=== PATIENT | male | born 1950 | race Caucasian/White ===

== ENCOUNTER 2025-05-28 15:34 | Emergency (ER) | payer OTHER, SELFPAY ==
[2025-05-28] VITALS (8 sets, daily range): BP systolic 181–186; BP diastolic 89–101; PULSE 60–67; RESP 17–20; TEMP 37.1; O2SAT 94–99
--- OUTSIDE RECORDS SUMMARY | 2025-05-28 15:36 | XMS_ITS | Clinical Summary ---
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 Name Role Phone [place], [place] Primary Care Provider [phone] Allergies No known active allergies Medications MedicationSigDispense QuantityRefillsLast FilledStart DateEnd DateStatus ATENOLOL 25 MG TAB take 1 tablet (25 mg) by oral route once daily 30 ctive LISINOPRIL 20 MG TAB take 1 tablet (20 mg) by oral route once daily 90 ctive VIAGRA 50 MG TAB take 1 tablet (50 mg) by oral route once daily as needed approximately 1 hour before sexual activity 6 ctive ATENOLOL 50 MG TAB Indications:HTNtake 1 tablet (50 mg) by oral route once daily 30 ctive Active Problems ProblemNoted DateDiagnosed DateHTN (hypertension)01/19/2009 Overview (08/28/2009): Updated by system to replace inactive record Unspecified essential trfyzyyfhxgv82/05/2009 Family History Medical HistoryRelationNameCommentsStrokeFatherDiabetesMotherRelationNameStatus CommentsFatherDeceasedMotherDeceased Social History Tobacco UseTypesPacks/DayYears UsedDateSmoking Tobacco: Every DayCigarettes Smokeless Tobacco: NeverAlcohol UseStandard Drinks/WeekCommentsYes1.7 (1 standard drink = 0.6 oz pure alcohol)Sex and Gender InformationValueDate RecordedSex Assigned at BirthNot on fileLegal IsaKoue8206/28/2012 5:23 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 Gender IdentityNot on fileSexual OrientationNot on file Last Filed Vital Signs Vital SignReadingTime TakenCommentsBlood Ecngudda935/8806/28/2020 1:00 PM REAL 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 LOAN OFFICER Weknc963206/28/2020 1:00 PM CUZDgyhckbzzzg96.1 ??C (98.8 ??F)06/28/2020 11:03 AM CSTRespiratory Ahle265506/28/2020 11:03 AM CSTOxygen Kzbtcjdpjg08%06/28/2020 1:00 PM CSTInhaled Oxygen Concentration--Cfjdwl61.5 kg (204 lb)06/28/2020 11:03 AM OEPTjyzyj411.3 cm (5' 9)06/28/2020 11:03 AM CSTBody Mass Index30.13006/28/2020 11:03 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 Plan of Treatment Health MaintenanceDue DateLast DoneCommentsTetanus iocwdfb5205/24/1960Depression screening for age 12+1BMI (ht and wt on same day) for age 18+1967 Hepatitis C screening for age 18-7905/24/1967Colonoscopy through age 75 1994Pneumococcal series for age 50+ (1 of 1 - PCV)1999Zoster (shingles) series for age 50+ (1 of 2)1999Lipids for age 45-75010/19/2013 10/19/2008, 07/12/2007RSV vaccine for adults or (1 - 1-dose 75+ series)2024OVID-19 vaccine series ( - 2024- season)2025Influenza Vaccine (#1)2025Hepatitis B series for 19+Aged OutNo longer eligible based on patient's age to complete this topic Procedures Procedure NamePriorityDate/TimeAssociated DiagnosisCommentsLIPID PANELRoutine 10/19/2008 8:28 AM CDT Unspecified Essential Hypertension from Last 3 Months or Most Recently Relevant to Health Maintenance Results * (ABNORMAL) LIPID PANEL (10/19/2008 8:28 AM CDT)ComponentValueRef RangeTest MethodAnalysis TimePerformed AtPathologist SignatureCHOLESTEROL,[id number] - 199 mg/dLFARIBAULT AMC CPPSSHBIEUMIEOPA228(H)<150 mg/dLFARADVENTHEALTH [facility] LABHDL NLBDQASGSLB11(L)>40 mg/dLFARADVENTHEALTH [facility] LABCHOL/HDL RATIO4.90(H)<4.51FARIBAVICTOR VALLEY HOSPITAL LABLDL GMANNWJKDSW256<131 mg/dLFARADVENTHEALTH HENDERSONVILLE LABPATIENT STATUSFasting [facility] LABSpecimen (Source)Anatomical Location / LateralityCollection Method / VolumeCollection TimeReceived TimeBlood specimen (specimen)BLOOD SPECIMEN / Scchopv4110/19/2008 8:28 AM CDT10/19/2008 8:11 AM CDT Narrative Authorizing ProviderResult TypeResult StatusRay Jonathan [place] MDCHEMISTRYFinal Result Performing OrganizationAddressCity/State/ZIP CodePhone Number [place] [facility] [address] [place] [address] from Last 3 Months or Most Recently Relevant to Health Maintenance Insurance * Guarantor: Hector Clark TypeRelation to PatientDate of BirthPhone Billing AddressPersonal/TldsdiMgtm1950 [id number] [place] [address] Care Teams Team MemberRelationshipSpecialtyStart [place] [address] [place] [phone] PCP - General06/28/20
--- NOTE | 2025-05-28 16:16 | ED.GENADULT ---
HPI - General Adult General Time Seen by Provider: 16:16 Date Seen: 05/28/25 Chief complaint: Chest Pain Stated complaint: Chest Tightness Time Seen by Provider: 05/28/25 16:16 Source: patient and RN notes reviewed Mode of arrival: ambulatory Limitations: no limitations History of Present Illness HPI narrative: Hector is a very pleasant 75-year-old gentleman with history of hypertension currently I am and loaded pain and losartan who comes to the emergency room with episodes of chest tightness associated with some mild dizziness since last night. These episodes are lasting 1 minute to 3 minutes. He denies visual changes shortness of breath or nausea when they occur but cannot say he does not get lightheaded. However, he denies any vertigo. He does not have a headache he describes the chest symptoms as tightness and not pain. He denies any lower extremity edema Except for some chronic swelling in his left ankle after a fracture dislocation a few years ago. He denies a history of DVT. he has not had any fever chills but does note waking up with a mild soreness in his left side of his throat a few nights ago. Denies runny nose, has had mild phlegm production. No significant cough. Denies a fever. The chest tightness is in the front of his chest, does not radiate to the back jaw or arms. Related Data Home Medications ?Medication ?Instructions ?Recorded ?Confirmed amlodipine 10 mg tablet 10 mg PO DAILY 05/28/25 05/28/25 losartan 100 mg tablet (Cozaar) 100 mg PO DAILY 05/28/25 05/28/25 Allergies Allergy/AdvReac Type Severity Reaction Status Date / Time Unable to Assess Allergy Unverified 05/28/25 15:47 Review of Systems Status of ROS: Reports: 10 or more systems reviewed and unremarkable except as noted in History and below Const: Denies: fever or chills Eyes: Denies: change in vision or blurry vision ENMT: Reports: throat pain ( Mild on the left); Denies: neck pain, vertigo or nasal congestion Cardio: Reports: chest pain ( described as tightness) and lightheadedness; Denies: palpitations, edema or shortness of breath with exertion Resp: Denies: shortness of breath or cough GI: Denies: abdominal pain, nausea, vomiting or diarrhea : Denies: painful urination or urinary frequency Musculo: Denies: back pain, neck pain or extremity pain Integ/Breast: Denies: rash or redness Neuro: Denies: headache, numbness in extremities, weakness in extremities, lack of coordination, vertigo or confusion Exam Narrative: Exam Narrative: alert and oriented. Very pleasant gentleman in no acute distress. External ears eyes nose clear. Oral cavity with moist mucous membranes. Neck is supple without lymphadenopathy. No erythema or exudate noted in the posterior oropharynx. Heart with regular rate and rhythm. Lungs are clear bilaterally. Abdomen is soft nontender. Lower extremities without edema or calf tenderness. Moving all extremities without difficulty. Const: Vital Signs, click to edit/add: Vital Signs - 24 hr 05/28/25 15:37 05/28/25 16:33 05/28/25 16:35 Temperature 98.7 F Pulse Rate 61 Pulse Rate [Right Pulse Oximeter] 65 Respiratory Rate 18 17 Blood Pressure Blood Pressure [Le ft Upper Arm] 186/89 H Pulse Oximetry 99 95 95 Oxygen Delivery Me thod Room Air 05/28/25 16:45 05/28/25 16:49 05/28/25 17:00 Temperature Pulse Rate 60 67 61 Pulse Rate [Right Pulse Oximeter] Respiratory Rate 17 18 20 Blood Pressure 183/101 H Blood Pressure [Le ft Upper Arm] Pulse Oximetry 95 96 95 Oxygen Delivery Me thod 05/28/25 17:02 05/28/25 17:15 Temperature Pulse Rate 62 62 Pulse Rate [Right Pulse Oximeter] Respiratory Rate 17 17 Blood Pressure 181/96 H Blood Pressure [Le ft Upper Arm] Pulse Oximetry 95 94 Oxygen Delivery Me thod Room Air Course Course ED Course: Differential diagnosis includes but is not limited to acute coronary syndrome, angina, anxiety, pneumonia, early viral infection, musculoskeletal discomfort. Point of care high sensitivity troponin has already been done and that is normal at 3.4. Will recheck that in [address] patient on court monitor, obtain EKG as well as labs to include CBC, comprehensive panel, magnesium. Will also obtain chest x-ray and put patient on court monitor. Reevaluation(s) Reevaluation #1: Patient noted to be without any discomfort in the ED. initial troponin is negative with reassuring EKG. White count normal, hemoglobin 16.7. Electrolytes without abnormality. Magnesium 1.9 LFTs within normal limits. Chest x-ray by my read without abnormality. Given the intermittent and fleeting nature of patient's discomfort will have him continue on the court monitor and repeat troponin. Reevaluation #2: I did attempt call to the [facility] but they would not take my phone call. It has been my experience in the past with [facility] in a gentleman with these symptoms age and cardiac risk factors that they do appreciate 2 troponins and usually suggest placement on ZIO patch and follow-up with stress test. Patient is given aspirin 324 mg p.o.. Currently awaiting D-dimer and if that is negative patient will be discharged home. Vital Signs Vital signs: Initial Vital Signs Temperature 98.7 F 05/28/25 15:37 Temperature Source Temporal Artery Scan 05/28/25 15:37 Pulse Rate 65 05/28/25 15:37 Pulse Rhythm Regular 05/28/25 15:37 Pulse Strength 3+ Normal 05/28/25 15:37 Respiratory Rate 18 05/28/25 15:37 Blood Pressure 186/89 H 05/28/25 15:37 Blood Pressure Mean 121 H 05/28/25 15:37 Blood Pressure Position Sitting 05/28/25 15:37 Pulse Oximetry 99 05/28/25 15:37 Oxygen Delivery Method Room Air 05/28/25 15:37 Vital Signs Temperature 98.7 F 05/28/25 15:37 Pulse Rate 65 05/28/25 15:37 Respiratory Rate 18 05/28/25 15:37 Blood Pressure 186/89 H 05/28/25 15:37 Pulse Oximetry 99 05/28/25 15:37 Oxygen Delivery Method Room Air 05/28/25 15:37 Temperature 98.7 F 05/28/25 15:37 Pulse Rate 62 05/28/25 17:15 Respiratory Rate 17 05/28/25 17:15 Blood Pressure 181/96 H 05/28/25 17:02 Pulse Oximetry 94 05/28/25 17:15 Oxygen Delivery Method Room Air 05/28/25 17:02 Medications Administered Medications: Generic Name Dose Route Start Last Admin Trade Name Freq PRN Reason Stop Dose Admin Aspirin 324 mg 05/28/25 19:09 05/28/25 19:27 Aspirin 81 Mg Tab.Chew PO 05/28/25 19:10 324 mg ONCE ONE Administration Medical Decision Making MDM Narrative Medical decision making narrative: 1. Atypical chest pain-patient noted to have 2-cardiac enzymes, a reassuring EKG with no evidence of ST or T-wave changes. In addition his D-dimer was negative, chest x-ray clear. Patient reported 1 fleeting moment of chest tightness without pain that lasted mere of seconds. He is given aspirin 324 mg p.o.. We have placed him on a ZIO patch and will set him up for a walking Lexiscan for ThursdayMay 30. If he is declined because of his [facility] status he will need to follow-up with his primary MD for a recheck. He has a remote history of a negative angiogram at the [facility]. Thinks this was greater than 10 years ago. Would have him continue his aspirin 1 dose tomorrow night. He is to seek medical attention for worsening symptoms. 2. Hypertension-patient notes longstanding hypertension. Stated that a few months ago he had been told to record his values and that the [facility] would reach out to him then they never did. Thus, he has continued to have elevated pressures. At 1 point his blood pressure did decrease to 165/94. I did suggest possibly adding hydrochlorothiazide. He states that he is allergic to 1 of the blood pressure medicines. I hesitate to something at this point as he has had ongoing high blood pressure for quite some time. Would suggest that he again follow-up with his primary MD for the addition of a 3rd medication. He is currently maxed out on his amlodipine and his clothes are. He has no evidence of hypertensive urgency or emergency this evening. 3. Disposition-home at this time. Expect phone call for Thursday stress test. Seek medical attention for worsening symptoms and as needed. Medical Records Medical records reviewed: Yes I reviewed the patient's medical records Lab Data Lab results reviewed: Yes I reviewed the patient's lab results Labs: Lab Results 05/28/25 05/28/25 05/28/25 Range/Units 15:48 16:33 16:45 WBC 5.87 (4.50-11.00) K/uL RBC 5.51 (4.30-5.90) m/uL Hgb 16.7 (13.5-17.5) gm/dL Hct 47.6 (37.0-53.0) % MCV 86 (80-100) fL MCH 30 (26-34) pg MCHC 35 (32-36) gm/dL RDW Coeff of Kizzy 12.2 (11.5-15.5) % Plt Count 190 (140-440) K/uL Neut % (Auto) 46.9 (42.0-72.0) % Lymph % (Auto) 40.0 (20-44) % Willacy % (Auto) 9.4 (0.0-11.0) % Eos % (Auto) 2.9 (0.0-7.0) % Baso % (Auto) 0.3 (0.0-3.0) % Neut # (Auto) 2.75 (1.7-7.0) K/uL Lymph # (Auto) 2.35 (0.90-2.90) K/uL Willacy # (Auto) 0.60 (0.00-0.90) K/UL Eos # (Auto) 0.17 (0.00-0.50) K/uL Baso # (Auto) 0.02 (0.00-0.30) K/uL Abs Immat Gran (auto) 0.03 (0.00-0.30) K/uL Imm/Tot Granulo (auto) 0.5 % D-Dimer Quant (PE/DVT) < 0.27 (0.00-0.50) ug/ml Sodium 137 (135-149) mmol/L Potassium 3.8 (3.6-5.1) mmol/L Chloride 103 (96-114) mmol/L Carbon Dioxide 25 (20-32) mmol/L Anion Gap 9 (7-15) mEq/L BUN 8 (7-30) mg/dL Creatinine 0.8 (0.5-1.5) mg/dL Estimated GFR 92 ml/min Glucose 130 H (60-115) mg/dL Calcium 9.3 (8.4-10.6) mg/dL Magnesium 1.9 (1.5-2.6) mg/dL Total Bilirubin 0.6 (0.1-1.5) mg/dL AST 28 (12-35) U/L ALT 42 (4-50) U/L Alkaline Phosphatase 66 (40-150) U/L POC Troponin I High Sensi 3.4 3.5 (2.9-28.0) pg/mL Total Protein 7.8 (6.0-8.3) g/dL Albumin 4.9 (3.3-5.0) g/dL Imaging Data Chest x-ray: Attestation: I have reviewed the pertinent imaging results. My impression: by my read no acute infiltrates or widened mediastinum. Radiologist's impression: The lungs are clear. The heart, mediastinum and pulmonary vessels are of normal size. There is no evidence of pleural disease. IMPRESSION: Negative chest. ECG Data Attestation: I personally reviewed and interpreted this ECG as follows: Interpretation: EKG by my read shows sinus rhythm at a rate of 66. I do not note any acute ST or T-wave changes. I do not note a prolonged UT QT interval. color television console monitor does not show any evidence of arrhythmia during patient's stay here. Discharge Plan Discharge Clinical Impression: Atypical chest pain Hypertension Qualifiers: Hypertension type: unspecified Qualified Code(s): I10 - Essential (primary) hypertension Patient Disposition: Home, Self-Care Condition: Improved Additional Instructions: 1. We will place ZIO monitor to monitor few for any unusual rhythms that it may be occurring while you feel the chest tightness. 2. Have ordered the stress test for Thursday. They will call you with a time once we have pre authorization from your insurance. If your insurance declines this test you will need to go through [facility]. 3. I would like you to have a dose of aspirin tonight. Will have you do a dose of baby aspirin tomorrow night as well. 4. Seek medical attention for worsening pain, shortness of breath, worsening symptoms. Prescriptions: No Action losartan [Cozaar] 100 mg tablet 100 mg PO DAILY amlodipine 10 mg tablet 10 mg PO DAILY Follow Up/Referrals: Provider,Not a Local [Primary Care Provider, Family Practice] Stand Alone Forms: Mobile Shareholder Info Instructions
--- NOTE | 2025-05-28 16:33 | CRLHL7_ITS ---
For Patients: As a result of the Century Cures Act, medical imaging exams and procedure reports are released immediately into your electronic medical record. You may view this report before your referring provider. If you have questions, please contact your health care provider. INDICATION: Chest tightness TECHNIQUE: Single view chest. FINDINGS: The lungs are clear. The heart, mediastinum and pulmonary vessels are of normal size. There is no evidence of pleural disease. IMPRESSION: Negative chest. Dictated by Greta Curry MD @ 05/28/2025 5:18:26 PM (Electronically Signed)
[2025-05-28 17:29] LABS: Hematocrit* 47.6 % (37.0-53.0); Hemoglobin* 16.7 gm/dL (13.5-17.5); Immature Granulocytes Abs Auto 0.03 K/uL (0.00-0.30); Immature Granulocytes Pct Auto 0.5 %; Lymphocytes Absolute Auto 2.35 K/uL (0.90-2.90); Mean Corpuscular HGB Conc 35 gm/dL (32-36); Mean Corpuscular Hemoglobin 30 pg (26-34); Mean Corpuscular Volume 86 fL (80-100); RDW Coefficient of Variation % 12.2 % (11.5-15.5); Red Blood Count* 5.51 m/uL (4.30-5.90); White Blood Count* 5.87 K/uL (4.50-11.00)
[2025-05-28 17:30] LABS: Slide Review Reflex No
[2025-05-28 17:33] LABS: Albumin* 4.9 g/dL (3.3-5.0); Chloride* 103 mmol/L (96-114); Sodium* 137 mmol/L (135-149)
[2025-05-28 17:34] LABS: Potassium* 3.8 mmol/L (3.6-5.1)
[2025-05-28 17:36] LABS: Alanine Aminotransferase* 42 U/L (4-50); Alkaline Phosphatase* 66 U/L (40-150); Anion Gap 9 mEq/L (7-15); Aspartate Amino Transferase* 28 U/L (12-35); Bilirubin Total* 0.6 mg/dL (0.1-1.5); Blood Urea Nitrogen* 8 mg/dL (7-30); Carbon Dioxide* 25 mmol/L (20-32); Creatinine* 0.8 mg/dL (0.5-1.5); Estimated Glomerular Filt Rate 92 ml/min; Total Protein* 7.8 g/dL (6.0-8.3)
[2025-05-28 17:37] LABS: Calcium* 9.3 mg/dL (8.4-10.6); Glucose* 130 mg/dL (60-115)
[2025-05-28 19:05] LABS: D Dimer Quantitative* < 0.27 ug/ml (0.00-0.50)
[2025-05-28] MEDS: ASPIRIN 81 MG TAB.CHEW 324 MG PO (19:27)
== END 2025-05-28 19:43 | disposition home or self-care (01) ==
PROVIDERS: Emergency Provider Family Medicine
DX: R07.89 Other chest pain (principal); R42 Dizziness and giddiness; I10 Essential (primary) hypertension
CPT/HCPCS: 36415; 71045; 80053; 83735; 84484; 85025; 85379; 93005; 93246; 94761; 99284; 99285; A9270